=== PATIENT | female | born 1965 | race Caucasian/White ===

== ENCOUNTER 2017-04-01 11:26 | Emergency (ER) | payer SELFPAY ==
[~2017-04-01] VITALS: Ht 167.6 cm; Wt 87.5 kg
--- NOTE | 2017-04-01 12:00 | NUR ---
[facility] [place]
[2017-04-01 12:36] VITALS: BP 155/77
--- NOTE | 2017-04-01 12:36 | NUR ---
Patient discharged to home in stable conditon. Written and verbal after care instructions given. Patient verbalizes understanding of instructions.
== END 2017-04-01 12:36 | disposition home or self-care (01) ==
LOC: ER 11:26
DX: J11.1 Influenza due to unidentified influenza virus with other respiratory manifestations (principal)
CPT/HCPCS: 99283; A4663

== ENCOUNTER 2019-03-25 10:05 | Emergency (ER) | payer BC ==
[~2019-03-25] VITALS: Ht 167.6 cm; Wt 86.2 kg
--- NOTE | 2019-03-25 10:20 | NUR ---
Patient ambulated with stable gait. A/Ox4. Speech is clear, speaks in complete sentences. Patient came for c/o sore throat + itchiness that initially started occuring since after summer of this year 2018. Respiratory even and unlabored, no cough no sob. No acute cardiovascular distress at this time, all pulses palpable.
--- NOTE | 2019-03-25 11:19 | NUR ---
Patient discharged to home in stable conditon. Written and verbal after care instructions given. Patient verbalizes understanding of instructions. Patient ambulated with stable gait.
[2019-03-25 11:20] VITALS: BP 128/79
== END 2019-03-25 11:20 | disposition home or self-care (01) ==
LOC: ER 10:05
DX: J30.9 Allergic rhinitis, unspecified (principal)
CPT/HCPCS: 36415; 86403; 87070; 87400; A4663